=== PATIENT | female | born 1980 | race Caucasian/White ===

== ENCOUNTER 2018-03-05 22:16 | Inpatient (IN) | payer OTHER ==
[2018-03-05] MEDS ORDERED: DOCUSATE SODIUM 100 MG CAP PO (23:30)
[2018-03-05] MEDS ORDERED: ALBUTEROL HFA 8 GM INHALER INH (23:36)
[2018-03-05] MEDS: HYDROmorphONE 0.5 MG/0.5 ML SYG IV (23:57)
[2018-03-05] MEDS: SOD CHLORIDE 0.9% 1,000 ML IV (23:57)
[2018-03-06] MEDS: HYDROmorphONE 0.5 MG/0.5 ML SYG IV ×6 (03:08→20:20)
[2018-03-06] MEDS: PANTOPRAZOLE 40 MG INJ IV (05:42)
[2018-03-06] MEDS ORDERED: ONDANSETRON 4 MG INJ (07:00)
[2018-03-06] MEDS ORDERED: SUCCINYLCHOLINE CHLORIDE 100 MG/5 ML SYG IV (07:00)
[2018-03-06] MEDS: MAGNESIUM OXIDE 400 MG TAB PO ×2 (08:49→21:33)
[2018-03-06] MEDS: POTASSIUM CHLORIDE (SR) 20 MEQ TAB PO ×5 (08:49→21:32)
[2018-03-06] MEDS: clonAZEPAM 0.5 MG TAB PO ×2 (08:49→21:32)
[2018-03-06] MEDS: METHADONE 10 MG TAB PO (08:50)
[2018-03-06] MEDS: SPIRONOLACTONE 25 MG TAB PO ×2 (08:50→21:32)
[2018-03-06 08:54] LABS: ADD MAN DIFF? NO
[2018-03-06 09:01] LABS: BASOPHILS % 1.1 % (0.0-2.0); EOSINOPHILS # 0.1 10^3/ul (0.0-0.5); EOSINOPHILS % 3.2 % (0.0-7.0); HEMATOCRIT 37.6 % (37.0-47.0); HEMOGLOBIN 11.9 g/dl (12.0-16.0); LYMPHOCYTES # 0.9 10^3/ul (0.8-2.9); LYMPHOCYTES % 31.7 % (15.0-51.0); MEAN CORPUSCULAR HGB CONC 31.6 g/dl (32.0-37.0); MEAN CORPUSCULAR VOLUME 91.5 fl (82.0-101.0); MEAN PLATELET VOLUME 9.8 fl (7.4-10.4); MONOCYTE # 0.4 10^3/ul (0.3-0.9); MONOCYTES % 14.4 % (0.0-11.0); NEUTROPHIL # 1.4 10^3/ul (1.6-7.5); NEUTROPHILS % 49.2 % (39.0-77.0); PLATELET COUNT 268 10^3/UL (140-415); RED BLOOD COUNT 4.11 10^6/ul (4.20-5.40); RED CELL DISTRIBUTION WIDTH 13.2 % (11.5-14.5)
[2018-03-06 09:01] LABS: WHITE BLOOD COUNT 2.8 10^3/ul (4.8-10.8)
[2018-03-06 09:18] LABS: INR 1.08; PROTIME 14.1 Sec (11.9-14.9); PT RATIO 1.1
[2018-03-06 09:28] LABS: ALANINE AMINOTRANSFERASE 18 IU/L (13-69); ALBUMIN/GLOBULIN RATIO 1.11; ALKALINE PHOSPHATASE 78 IU/L (42-121); ANION GAP 15 (8-16); ASPARTATE AMINO TRANSFERASE 18 IU/L (15-46); BILIRUBIN,INDIRECT 0.3 mg/dl (0-1.1); BILIRUBIN,TOTAL 0.3 mg/dl (0.2-1.3); BLOOD UREA NITROGEN 17 mg/dl (7-20); CARBON DIOXIDE 30 mmol/L (21-31); CHLORIDE 103 mmol/L (97-110); CREATININE 1.09 mg/dl (0.44-1.00); GLUCOSE 76 mg/dl (70-220); POTASSIUM 3.8 mmol/L (3.5-5.1); SODIUM 144 mmol/L (135-144); TOTAL PROTEIN 7.6 g/dl (6.1-8.1)
[2018-03-06] MEDS: HYDROCODONE/APAP (5/325) TAB PO ×2 (11:29→21:40)
[2018-03-06] MEDS: NICOTINE (21 MG/24 HR) PATCH TRANSDERM (11:30)
[2018-03-06] MEDS: SOD CHLORIDE 0.9% 1,000 ML IV ×2 (11:30→21:31)
[2018-03-06] MEDS ORDERED: IOHEXOL 300MG/ML 30 ML BTL (16:59)
[2018-03-06] MEDS ORDERED: MIDAZOLAM 1 MG/ML 2 ML INJ (17:26)
[2018-03-06] MEDS ORDERED: FENTAnyl 50 MCG/ML VIAL ×3 (17:30→19:30)
[2018-03-06] MEDS ORDERED: PROPOFOL 40 ML (17:31)
[2018-03-06] MEDS ORDERED: ROCURONIUM 50 MG INJ (17:48)
[2018-03-06] MEDS ORDERED: EPHEDrine SULFATE 50 MG/5 ML SYG (18:10)
[2018-03-06] MEDS ORDERED: SUGAMMADEX SODIUM 200 MG/2 ML VIAL IV (18:11)
[2018-03-06] MEDS ORDERED: DEXAMETHASONE 4 MG/ML 1 ML INJ (18:12)
[2018-03-06] MEDS ORDERED: HYDROmorphONE (0.2 MG/ML) 10ML SYG IV ×3 (18:54→19:30)
[2018-03-06] MEDS ORDERED: MEPERIDINE 25 MG INJ (19:10)
[2018-03-06] MEDS ORDERED: FENTAnyl 50 MCG/ML VIAL IV ×2 (19:30)
[2018-03-06] MEDS: MEPERIDINE 25 MG INJ IV (19:33)
[2018-03-06] MEDS: HYDROmorphONE (0.2 MG/ML) 10ML SYG IV (19:34)
[2018-03-06] MEDS: FENTAnyl 50 MCG/ML VIAL IV (19:35)
[2018-03-06] MEDS: ALBUTEROL/IPRATROPIUM (NEB) 3 ML AMP HHN (20:00)
[2018-03-06] MEDS: ONDANSETRON 4 MG INJ IV (20:18)
[2018-03-06] MEDS: LEVOFLOXACIN 500MG/D5W (PMX) 100 ML IVPB (21:31)
[2018-03-06] MEDS: GABAPENTIN 300 MG CAP PO (21:32)
[2018-03-07] MEDS: ALBUTEROL/IPRATROPIUM (NEB) 3 ML AMP HHN ×4 (01:11→19:42)
[2018-03-07] MEDS: HYDROmorphONE 0.5 MG/0.5 ML SYG IV ×7 (01:38→20:58)
[2018-03-07] MEDS: ONDANSETRON 4 MG INJ IV ×2 (04:54→12:14)
[2018-03-07] MEDS: PANTOPRAZOLE 40 MG INJ IV ×2 (04:54→20:58)
[2018-03-07 05:39] LABS: ADD MAN DIFF? NO
[2018-03-07 05:43] LABS: WHITE BLOOD COUNT 3.1 10^3/ul (4.8-10.8)
[2018-03-07 05:43] LABS: BASOPHILS % 0.3 % (0.0-2.0); HEMOGLOBIN 11.6 g/dl (12.0-16.0); LYMPHOCYTES # 0.7 10^3/ul (0.8-2.9); LYMPHOCYTES % 23.9 % (15.0-51.0); MEAN CORPUSCULAR HEMOGLOBIN 28.4 pg (29.0-33.0); MEAN CORPUSCULAR HGB CONC 31.4 g/dl (32.0-37.0); MEAN CORPUSCULAR VOLUME 90.5 fl (82.0-101.0); MEAN PLATELET VOLUME 9.7 fl (7.4-10.4); MONOCYTE # 0.3 10^3/ul (0.3-0.9); MONOCYTES % 8.7 % (0.0-11.0); NEUTROPHIL # 2.1 10^3/ul (1.6-7.5); NEUTROPHILS % 66.8 % (39.0-77.0); PLATELET COUNT 258 10^3/UL (140-415); RED BLOOD COUNT 4.09 10^6/ul (4.20-5.40); RED CELL DISTRIBUTION WIDTH 12.8 % (11.5-14.5)
[2018-03-07 06:00] LABS: PHOSPHORUS 3.8 mg/dl (2.5-4.9)
[2018-03-07 07:00] LABS: ANION GAP 18 (8-16); BLOOD UREA NITROGEN 17 mg/dl (7-20); CALCIUM 8.9 mg/dl (8.4-10.2); CARBON DIOXIDE 23 mmol/L (21-31); CHLORIDE 106 mmol/L (97-110); GLUCOSE 132 mg/dl (70-220); POTASSIUM 4.7 mmol/L (3.5-5.1); SODIUM 142 mmol/L (135-144)
[2018-03-07] MEDS: MAGNESIUM OXIDE 400 MG TAB PO ×2 (08:07→20:58)
[2018-03-07] MEDS: SPIRONOLACTONE 25 MG TAB PO ×2 (08:07→21:14)
[2018-03-07] MEDS: clonAZEPAM 0.5 MG TAB PO ×2 (08:07→20:58)
[2018-03-07] MEDS: NICOTINE (21 MG/24 HR) PATCH TRANSDERM (08:08)
[2018-03-07] MEDS: POTASSIUM CHLORIDE (SR) 20 MEQ TAB PO ×5 (08:10→21:11)
[2018-03-07] MEDS: METHADONE 10 MG TAB PO (09:07)
[2018-03-07 10:22] LABS: ADD UMIC NO; UR ASCORBIC ACID NEGATIVE (NEGATIVE); UR BILIRUBIN (Dip) NEGATIVE (NEGATIVE); UR BLOOD (Dip) NEGATIVE (NEGATIVE); UR CLARITY CLEAR (CLEAR); UR COLOR COLORLESS (YELLOW); UR GLUCOSE (Dip) NEGATIVE (NEGATIVE); UR KETONES (Dip) NEGATIVE (NEGATIVE); UR LEUKOCYTE ESTERASE (Dip) NEGATIVE Leu/ul (NEGATIVE); UR NITRITE (Dip) NEGATIVE (NEGATIVE); UR SPECIFIC GRAVITY (Dip) 1.005 (1.003-1.030); UR TOTAL PROTEIN (Dip) NEGATIVE (NEGATIVE); UR UROBILINOGEN (Dip) NEGATIVE (NEGATIVE)
[2018-03-07] MEDS: PHENYTOIN 100 MG CAP PO ×3 (10:30→20:59)
[2018-03-07] MEDS: SOD CHLORIDE 0.9% 1,000 ML IV (11:36)
[2018-03-07 12:39] LABS: LIPASE 50 U/L (23-300)
[2018-03-07 12:39] LABS: AMYLASE 57 U/L (11-123)
[2018-03-07] MEDS: HYDROCODONE/APAP (5/325) TAB PO (13:27)
[2018-03-07] MEDS: BARIUM SULF 2% 450 ML BTL (BERRY SMOOTHIE) PO (13:30)
[2018-03-07] MEDS: IOHEXOL 300MG/ML 150 ML BTL (15:04)
[2018-03-07] MEDS: SOD CHLORIDE 0.9% 100 ML (15:04)
[2018-03-07] MEDS: HYDROmorphONE 2 MG/ML SYG IV (15:30)
[2018-03-07] MEDS: LEVOFLOXACIN 500MG/D5W (PMX) 100 ML IVPB (16:56)
[2018-03-07] MEDS: GABAPENTIN 300 MG CAP PO (20:59)
[2018-03-08] MEDS: ONDANSETRON 4 MG INJ IV ×3 (00:09→14:36)
[2018-03-08] MEDS: HYDROmorphONE 0.5 MG/0.5 ML SYG IV ×5 (00:11→14:34)
[2018-03-08] MEDS: ALBUTEROL/IPRATROPIUM (NEB) 3 ML AMP HHN ×3 (01:43→14:14)
[2018-03-08] MEDS: SOD CHLORIDE 0.9% 1,000 ML IV ×2 (04:50→05:36)
[2018-03-08] MEDS: NICOTINE (21 MG/24 HR) PATCH TRANSDERM (08:35)
[2018-03-08] MEDS: PANTOPRAZOLE 40 MG INJ IV (08:35)
[2018-03-08] MEDS: clonAZEPAM 0.5 MG TAB PO (09:29)
[2018-03-08] MEDS: MAGNESIUM OXIDE 400 MG TAB PO (09:29)
[2018-03-08] MEDS: SPIRONOLACTONE 25 MG TAB PO (09:29)
[2018-03-08] MEDS: FLUOXETINE 10 MG CAP PO (09:29)
[2018-03-08] MEDS: METHADONE 10 MG TAB PO (09:29)
[2018-03-08] MEDS: PHENYTOIN 100 MG CAP PO ×2 (09:29→12:42)
[2018-03-08] MEDS: POTASSIUM CHLORIDE (SR) 20 MEQ TAB PO ×3 (09:32→14:36)
[2018-03-08] MEDS: BISACODYL 10 MG SUPP PR (09:39)
[2018-03-08] MEDS: DRONABINOL 2.5 MG CAP PO (12:41)
[2018-03-08 15:47] LABS: ABNORMAL IP MESSAGE 1; HEMOGLOBIN 10.8 g/dl (12.0-16.0); MEAN CORPUSCULAR HEMOGLOBIN 28.3 pg (29.0-33.0); MEAN CORPUSCULAR HGB CONC 30.9 g/dl (32.0-37.0); MEAN CORPUSCULAR VOLUME 91.9 fl (82.0-101.0); MEAN PLATELET VOLUME 9.5 fl (7.4-10.4); PLATELET COUNT 256 10^3/UL (140-415); RED BLOOD COUNT 3.81 10^6/ul (4.20-5.40); RED CELL DISTRIBUTION WIDTH 13.1 % (11.5-14.5)
[2018-03-08 15:53] LABS: ADD MAN DIFF? YES; POSITIVE DIFF @See below
[2018-03-08 16:12] LABS: ALANINE AMINOTRANSFERASE 22 IU/L (13-69); ALBUMIN 3.5 g/dl (3.3-4.9); ALBUMIN/GLOBULIN RATIO 0.97; ALKALINE PHOSPHATASE 65 IU/L (42-121); ANION GAP 16 (8-16); ASPARTATE AMINO TRANSFERASE 20 IU/L (15-46); BLOOD UREA NITROGEN 8 mg/dl (7-20); CALCIUM 8.8 mg/dl (8.4-10.2); CARBON DIOXIDE 29 mmol/L (21-31); CHLORIDE 106 mmol/L (97-110); CREATININE 1.22 mg/dl (0.44-1.00); GLUCOSE 100 mg/dl (70-220); SODIUM 147 mmol/L (135-144); TOTAL PROTEIN 7.1 g/dl (6.1-8.1)
[2018-03-08 16:13] LABS: PHOSPHORUS 3.4 mg/dl (2.5-4.9)
[2018-03-08 16:13] LABS: MAGNESIUM 1.6 mg/dl (1.7-2.5)
[2018-03-08 16:17] LABS: ANISOCYTOSIS 1+ (0-0); BAND NEUTROPHILS % (M) 1 % (0-4); EOSINOPHILS % (M) 1 % (0-7); LYMPHOCYTES #M 1.5 10^3/ul (0.8-2.9); LYMPHOCYTES % (M) 50 % (15-51); MICROCYTOSIS 1+ (0-0); MONOCYTE #M 0.2 10^3/ul (0.3-0.9); MONOCYTES % (M) 7 % (0-11); PLATELET ESTIMATE NORMAL; REACTIVE LYMPHOCYTES% (M) 3 % (0-0); SEG NEUT #M 1.1 10^3/ul (1.6-7.5); SEGMENTED NEUTROPHILS (M) % 38 % (39-77); SMUDGE%M 10 % (0-0)
[2018-03-08] MEDS ORDERED: SOD PHOS MONO/DIBAS 250 MG TAB PO (18:30)
== END 2018-03-08 17:13 | disposition left against medical advice (07) | DRG 382 ==
LOC: PP2 22:16
PROC: 0DJ08ZZ Inspection of Upper Intestinal Tract, Via Natural or Artificial Opening Endoscopic (ICD-10-PCS; principal; 2018-03-06 17:30)
PROC: 0F798ZZ Dilation of Common Bile Duct, Via Natural or Artificial Opening Endoscopic (ICD-10-PCS; 2018-03-06 17:30)
PROC: 0F778ZZ Dilation of Common Hepatic Duct, Via Natural or Artificial Opening Endoscopic (ICD-10-PCS; 2018-03-06 17:30)
PROC: 0FPB8DZ Removal of Intraluminal Device from Hepatobiliary Duct, Via Natural or Artificial Opening Endoscopic (ICD-10-PCS; 2018-03-06 17:30)
DX: K22.10 Ulcer of esophagus without bleeding (principal); K25.9 Gastric ulcer, unspecified as acute or chronic, without hemorrhage or perforation; E26.81 Bartter's syndrome; M06.9 Rheumatoid arthritis, unspecified; F17.210 Nicotine dependence, cigarettes, uncomplicated
CPT/HCPCS: 74177; 74330; 80048; 80053; 81003; 82150; 83690; 83735; 84100; 84703; 85025; 85610; 88305; 88313; 94640; 94664

== ENCOUNTER 2018-10-08 04:02 | Emergency (ER) | payer OTHER ==
[2018-10-08] MEDS: HYDROCODONE/APAP (5/325) TAB PO (04:37)
== END 2018-10-08 05:35 | disposition home or self-care (01) ==
LOC: FTE 04:02
DX: S39.92XA Unspecified injury of lower back, initial encounter (principal); J45.909 Unspecified asthma, uncomplicated; J44.9 Chronic obstructive pulmonary disease, unspecified; F17.210 Nicotine dependence, cigarettes, uncomplicated; W06.XXXA Fall from bed, initial encounter; Y92.9 Unspecified place or not applicable
CPT/HCPCS: 72131; 81025; 99284-25

== ENCOUNTER 2019-01-24 10:44 | Inpatient (IN) | payer OTHER ==
[2019-01-24] MEDS: morphine 4 MG/ML VIAL IV (13:23)
[2019-01-24] MEDS: ACETAMINOPHEN 325 MG TAB PO (13:23)
[2019-01-24] MEDS: ONDANSETRON 4 MG INJ IV (13:23)
[2019-01-24 13:24] LABS: ADD MAN DIFF? NO
[2019-01-24 13:29] LABS: BASOPHILS % 0.5 % (0.0-2.0); EOSINOPHILS % 0.4 % (0.0-7.0); HEMATOCRIT 39.5 % (37.0-47.0); HEMOGLOBIN 12.6 g/dl (12.0-16.0); LYMPHOCYTES # 1.4 10^3/ul (0.8-2.9); LYMPHOCYTES % 17.2 % (15.0-51.0); MEAN CORPUSCULAR HEMOGLOBIN 29.1 pg (29.0-33.0); MEAN CORPUSCULAR HGB CONC 31.9 g/dl (32.0-37.0); MEAN CORPUSCULAR VOLUME 91.2 fl (82.0-101.0); MEAN PLATELET VOLUME 9.1 fl (7.4-10.4); MONOCYTE # 0.6 10^3/ul (0.3-0.9); MONOCYTES % 7.7 % (0.0-11.0); NEUTROPHIL # 5.9 10^3/ul (1.6-7.5); NEUTROPHILS % 73.6 % (39.0-77.0); PLATELET COUNT 433 10^3/UL (140-415); RED BLOOD COUNT 4.33 10^6/ul (4.20-5.40); RED CELL DISTRIBUTION WIDTH 12.2 % (11.5-14.5)
[2019-01-24] MEDS ORDERED: ACETAMINOPHEN 325 MG TAB PO (13:30)
[2019-01-24] MEDS ORDERED: ONDANSETRON 4 MG INJ IV (13:30)
[2019-01-24 13:52] LABS: ALBUMIN 4.3 g/dl (3.3-4.9); ALBUMIN/GLOBULIN RATIO 0.93; ALKALINE PHOSPHATASE 84 IU/L (42-121); ANION GAP 8 (5-13); ASPARTATE AMINO TRANSFERASE 20 IU/L (15-46); BILIRUBIN,INDIRECT 0.1 mg/dl (0-1.1); BILIRUBIN,TOTAL 0.1 mg/dl (0.2-1.3); BLOOD UREA NITROGEN 14 mg/dl (7-20); CALCIUM 10.2 mg/dl (8.4-10.2); CARBON DIOXIDE 32 mmol/L (21-31); CHLORIDE 101 mmol/L (97-110); CREATININE 1.23 mg/dl (0.44-1.00); Estimated GFR 49 mL/min (>60); GLUCOSE 94 mg/dl (70-220); POTASSIUM 5.2 mmol/L (3.5-5.1); SODIUM 141 mmol/L (135-144); TOTAL PROTEIN 8.9 g/dl (6.1-8.1)
[2019-01-24 13:53] LABS: INR 0.99; PARTIAL THROMBOPLASTIN TIME 30.9 Sec (23.0-35.0); PROTIME 13.2 Sec (11.9-14.9)
[2019-01-24 14:00] LABS: ALANINE AMINOTRANSFERASE < 6 IU/L (13-69)
[2019-01-24] MEDS: SOD CHLORIDE 0.9% 1,000 ML IV ×2 (14:27→17:54)
[2019-01-24] MEDS ORDERED: VANCOMYCIN IV PER PHARMACY XX (16:30)
[2019-01-24] MEDS: morphine 2 MG INJ IV ×2 (16:44→21:05)
[2019-01-24 17:37] LABS: ADD UMIC YES; UR ASCORBIC ACID NEGATIVE (NEGATIVE); UR BILIRUBIN (Dip) NEGATIVE (NEGATIVE); UR BLOOD (Dip) 1+ mg/dL (NEGATIVE); UR CLARITY CLEAR (CLEAR); UR COLOR YELLOW (YELLOW); UR GLUCOSE (Dip) NEGATIVE (NEGATIVE); UR KETONES (Dip) NEGATIVE (NEGATIVE); UR LEUKOCYTE ESTERASE (Dip) NEGATIVE Leu/ul (NEGATIVE); UR NITRITE (Dip) NEGATIVE (NEGATIVE); UR RBC 1 /HPF (0-5); UR SPECIFIC GRAVITY (Dip) 1.013 (1.003-1.030); UR SQUAMOUS EPITHELIAL CELL FEW /HPF (FEW); UR TOTAL PROTEIN (Dip) NEGATIVE (NEGATIVE); UR UROBILINOGEN (Dip) NEGATIVE (NEGATIVE); UR WBC 2 /HPF (0-5)
[2019-01-24] MEDS: LORAZEPAM 1 MG TAB PO (17:44)
[2019-01-24] MEDS: ALBUTEROL HFA 8 GM INHALER INH ×2 (17:45→21:09)
[2019-01-24] MEDS: CEFEPIME 1GM/50 ML (PMX) 50 ML IVPB (17:46)
[2019-01-24] MEDS: VANCOMYCIN 1 GM 250 ML IVPB (17:46)
[2019-01-24 17:50] LABS: AMPHETAMINE/METHAMPHETAMINE Negative (NEGATIVE); BARBITURATES Negative (NEGATIVE); BENZODIAZEPINES Negative (NEGATIVE); CANNABINOIDS Positive (NEGATIVE); COCAINE Negative (NEGATIVE); OPIATES Positive (NEGATIVE)
[2019-01-24] MEDS: HYDROCODONE/APAP (5/325) TAB PO (17:58)
[2019-01-24] MEDS ORDERED: POTASSIUM CHLORIDE (SR) 20 MEQ TAB PO (21:00)
[2019-01-24] MEDS: MAGNESIUM OXIDE 400 MG TAB PO (21:05)
[2019-01-24] MEDS: GABAPENTIN 300 MG CAP PO (21:05)
[2019-01-25] MEDS: HYDROCODONE/APAP (5/325) TAB PO ×2 (00:10→07:39)
[2019-01-25] MEDS: ALBUTEROL HFA 8 GM INHALER INH ×6 (01:00→20:56)
[2019-01-25] MEDS: CEFEPIME 1GM/50 ML (PMX) 50 ML IVPB ×3 (01:03→20:53)
[2019-01-25] MEDS: morphine 2 MG INJ IV ×3 (01:03→08:58)
[2019-01-25] MEDS: LORAZEPAM 1 MG TAB PO ×2 (01:58→21:48)
[2019-01-25] MEDS: PANTOPRAZOLE 40 MG INJ IV (05:04)
[2019-01-25] MEDS: VANCOMYCIN 1 GM 250 ML IVPB ×2 (05:04→18:02)
[2019-01-25] MEDS: SOD CHLORIDE 0.9% 1,000 ML IV ×2 (06:18→20:36)
[2019-01-25 06:39] LABS: ADD MAN DIFF? NO
[2019-01-25 06:46] LABS: WHITE BLOOD COUNT 6.9 10^3/ul (4.8-10.8)
[2019-01-25 06:46] LABS: BASOPHILS % 0.4 % (0.0-2.0); EOSINOPHILS # 0.1 10^3/ul (0.0-0.5); EOSINOPHILS % 1.8 % (0.0-7.0); HEMATOCRIT 36.8 % (37.0-47.0); HEMOGLOBIN 11.8 g/dl (12.0-16.0); LYMPHOCYTES # 1.4 10^3/ul (0.8-2.9); MEAN CORPUSCULAR HEMOGLOBIN 28.9 pg (29.0-33.0); MEAN CORPUSCULAR HGB CONC 32.1 g/dl (32.0-37.0); MONOCYTE # 0.6 10^3/ul (0.3-0.9); MONOCYTES % 8.9 % (0.0-11.0); NEUTROPHIL # 4.7 10^3/ul (1.6-7.5); NEUTROPHILS % 68.5 % (39.0-77.0); PLATELET COUNT 408 10^3/UL (140-415); RED BLOOD COUNT 4.09 10^6/ul (4.20-5.40); RED CELL DISTRIBUTION WIDTH 12.2 % (11.5-14.5)
[2019-01-25 07:04] LABS: ANION GAP 9 (5-13); BLOOD UREA NITROGEN 14 mg/dl (7-20); CALCIUM 8.9 mg/dl (8.4-10.2); CARBON DIOXIDE 29 mmol/L (21-31); CHLORIDE 102 mmol/L (97-110); CREATININE 1.07 mg/dl (0.44-1.00); Estimated GFR 58 mL/min (>60); GLUCOSE 87 mg/dl (70-220); MAGNESIUM 1.4 mg/dl (1.7-2.5); PHOSPHORUS 3.7 mg/dl (2.5-4.9); POTASSIUM 4.3 mmol/L (3.5-5.1); SODIUM 140 mmol/L (135-144)
[2019-01-25] MEDS: LORAZEPAM 2 MG INJ IV (07:57)
[2019-01-25] MEDS: LIDOCAINE 1%/EPI 30 ML INJ INJ (08:19)
[2019-01-25] MEDS: DULOXETINE 30 MG CAP DR PO (09:27)
[2019-01-25] MEDS: MAGNESIUM OXIDE 400 MG TAB PO ×2 (09:27→20:52)
[2019-01-25] MEDS: OXYCODONE/ACETAMINOPHEN (5/325) TAB PO ×3 (10:00→19:26)
[2019-01-25] MEDS: morphine 4 MG/ML VIAL IV ×3 (12:44→20:53)
[2019-01-25] MEDS: ENOXAPARIN 40 MG/0.4 ML SYG SC (12:51)
[2019-01-25] MEDS: NICOTINE (21 MG/24 HR) PATCH TRANSDERM ×2 (12:56→16:53)
[2019-01-25] MEDS: ONDANSETRON 4 MG INJ IV (20:16)
[2019-01-25] MEDS: GABAPENTIN 300 MG CAP PO (20:53)
[2019-01-26] MEDS: ALBUTEROL HFA 8 GM INHALER INH ×6 (01:00→20:10)
[2019-01-26] MEDS: morphine 4 MG/ML VIAL IV ×5 (02:44→20:04)
[2019-01-26] MEDS: OXYCODONE/ACETAMINOPHEN (5/325) TAB PO ×5 (05:38→23:00)
[2019-01-26] MEDS: PANTOPRAZOLE (EC) 40 MG TAB PO (05:38)
[2019-01-26] MEDS ORDERED: PANTOPRAZOLE 40 MG INJ IV (06:00)
[2019-01-26 06:10] LABS: ADD MAN DIFF? NO
[2019-01-26 06:22] LABS: WHITE BLOOD COUNT 5.3 10^3/ul (4.8-10.8)
[2019-01-26 06:22] LABS: BASOPHILS % 0.6 % (0.0-2.0); EOSINOPHILS # 0.2 10^3/ul (0.0-0.5); EOSINOPHILS % 2.8 % (0.0-7.0); HEMOGLOBIN 11.5 g/dl (12.0-16.0); LYMPHOCYTES # 1.5 10^3/ul (0.8-2.9); MEAN CORPUSCULAR HEMOGLOBIN 28.6 pg (29.0-33.0); MEAN CORPUSCULAR HGB CONC 31.9 g/dl (32.0-37.0); MEAN CORPUSCULAR VOLUME 89.6 fl (82.0-101.0); MONOCYTE # 0.6 10^3/ul (0.3-0.9); MONOCYTES % 10.5 % (0.0-11.0); NEUTROPHIL # 3.1 10^3/ul (1.6-7.5); NEUTROPHILS % 57.7 % (39.0-77.0); PLATELET COUNT 413 10^3/UL (140-415); RED BLOOD COUNT 4.02 10^6/ul (4.20-5.40); RED CELL DISTRIBUTION WIDTH 12.1 % (11.5-14.5)
[2019-01-26 07:17] LABS: ANION GAP 11 (5-13); BLOOD UREA NITROGEN 12 mg/dl (7-20); CALCIUM 9.1 mg/dl (8.4-10.2); CARBON DIOXIDE 30 mmol/L (21-31); CHLORIDE 99 mmol/L (97-110); CREATININE 1.09 mg/dl (0.44-1.00); Estimated GFR 57 mL/min (>60); GLUCOSE 85 mg/dl (70-220); POTASSIUM 3.4 mmol/L (3.5-5.1); SODIUM 140 mmol/L (135-144)
[2019-01-26] MEDS: VANCOMYCIN 1 GM 250 ML IVPB ×2 (07:24→17:08)
[2019-01-26] MEDS: LORAZEPAM 1 MG TAB PO ×2 (07:36→15:43)
[2019-01-26] MEDS: MAGNESIUM OXIDE 400 MG TAB PO ×2 (08:57→20:05)
[2019-01-26] MEDS: ENOXAPARIN 40 MG/0.4 ML SYG SC (08:57)
[2019-01-26] MEDS: DULOXETINE 30 MG CAP DR PO (08:58)
[2019-01-26] MEDS: NICOTINE (21 MG/24 HR) PATCH TRANSDERM (08:58)
[2019-01-26] MEDS: CEFEPIME 1GM/50 ML (PMX) 50 ML IVPB ×2 (08:58→20:05)
[2019-01-26] MEDS: SOD CHLORIDE 0.9% 1,000 ML IV ×2 (11:36→15:41)
[2019-01-26] MEDS: HYDROCODONE/APAP (5/325) TAB PO (17:13)
[2019-01-26] MEDS: BENZOCAINE 20% 0.33 OZ. GEL MT ×2 (17:46→20:08)
[2019-01-26] MEDS: GABAPENTIN 300 MG CAP PO (20:05)
[2019-01-26] MEDS: POTASSIUM CHLORIDE (SR) 20 MEQ TAB PO (21:22)
[2019-01-27] MEDS: LORAZEPAM 1 MG TAB PO ×3 (00:09→17:45)
[2019-01-27] MEDS: morphine 4 MG/ML VIAL IV ×6 (00:10→22:51)
[2019-01-27] MEDS: ALBUTEROL HFA 8 GM INHALER INH ×6 (01:00→21:00)
[2019-01-27] MEDS: OXYCODONE/ACETAMINOPHEN (5/325) TAB PO ×5 (03:06→20:27)
[2019-01-27] MEDS: PANTOPRAZOLE (EC) 40 MG TAB PO (05:31)
[2019-01-27] MEDS: VANCOMYCIN 1 GM 250 ML IVPB (05:32)
[2019-01-27 07:24] LABS: ADD MAN DIFF? NO
[2019-01-27 07:28] LABS: WHITE BLOOD COUNT 6.6 10^3/ul (4.8-10.8)
[2019-01-27 07:28] LABS: BASOPHIL # 0.1 10^3/ul (0.0-0.1); BASOPHILS % 0.8 % (0.0-2.0); EOSINOPHILS # 0.3 10^3/ul (0.0-0.5); EOSINOPHILS % 4.1 % (0.0-7.0); HEMATOCRIT 31.5 % (37.0-47.0); HEMOGLOBIN 10.1 g/dl (12.0-16.0); LYMPHOCYTES % 30.2 % (15.0-51.0); MEAN CORPUSCULAR HEMOGLOBIN 28.9 pg (29.0-33.0); MEAN CORPUSCULAR HGB CONC 32.1 g/dl (32.0-37.0); MEAN PLATELET VOLUME 9.1 fl (7.4-10.4); MONOCYTE # 0.8 10^3/ul (0.3-0.9); MONOCYTES % 12.1 % (0.0-11.0); NEUTROPHIL # 3.5 10^3/ul (1.6-7.5); NEUTROPHILS % 52.3 % (39.0-77.0); PLATELET COUNT 379 10^3/UL (140-415); RED CELL DISTRIBUTION WIDTH 12.3 % (11.5-14.5)
[2019-01-27] MEDS: HYDROCODONE/APAP (5/325) TAB PO (07:34)
[2019-01-27 07:52] LABS: ANION GAP 7 (5-13); BLOOD UREA NITROGEN 21 mg/dl (7-20); CALCIUM 8.6 mg/dl (8.4-10.2); CARBON DIOXIDE 29 mmol/L (21-31); CHLORIDE 104 mmol/L (97-110); CREATININE 1.33 mg/dl (0.44-1.00); Estimated GFR 45 mL/min (>60); GLUCOSE 79 mg/dl (70-220); POTASSIUM 3.5 mmol/L (3.5-5.1); SODIUM 140 mmol/L (135-144)
[2019-01-27] MEDS: BENZOCAINE 20% 0.33 OZ. GEL MT ×2 (09:13→20:27)
[2019-01-27] MEDS: ENOXAPARIN 40 MG/0.4 ML SYG SC (09:14)
[2019-01-27] MEDS: CEFEPIME 1GM/50 ML (PMX) 50 ML IVPB (09:14)
[2019-01-27] MEDS: MAGNESIUM OXIDE 400 MG TAB PO ×2 (09:15→20:26)
[2019-01-27] MEDS: POTASSIUM CHLORIDE (SR) 20 MEQ TAB PO ×3 (09:15→20:27)
[2019-01-27] MEDS: NICOTINE (21 MG/24 HR) PATCH TRANSDERM (09:15)
[2019-01-27] MEDS: DULOXETINE 30 MG CAP DR PO (09:15)
[2019-01-27] MEDS: SOD CHLORIDE 0.9% 1,000 ML IV (16:11)
[2019-01-27] MEDS: GABAPENTIN 300 MG CAP PO (20:27)
[2019-01-27] MEDS: AMPICILLIN/SULB 1.5GM/NS (PMX) 50 ML IVPB (21:29)
[2019-01-27] MEDS: CLINDAMYCIN 600 MG/D5W (PMX) 50 ML IVPB (22:11)
[2019-01-28] MEDS: NICOTINE (21 MG/24 HR) PATCH TRANSDERM (00:57)
[2019-01-28] MEDS: OXYCODONE/ACETAMINOPHEN (5/325) TAB PO ×6 (01:04→21:38)
[2019-01-28] MEDS: ALBUTEROL HFA 8 GM INHALER INH ×6 (01:58→20:20)
[2019-01-28] MEDS: LORAZEPAM 1 MG TAB PO ×3 (02:03→19:03)
[2019-01-28] MEDS: morphine 4 MG/ML VIAL IV ×4 (03:16→20:22)
[2019-01-28] MEDS: CLINDAMYCIN 600 MG/D5W (PMX) 50 ML IVPB ×3 (05:11→21:30)
[2019-01-28] MEDS: AMPICILLIN/SULB 1.5GM/NS (PMX) 50 ML IVPB ×3 (06:24→22:54)
[2019-01-28] MEDS: PANTOPRAZOLE (EC) 40 MG TAB PO (06:24)
[2019-01-28 08:30] LABS: ANION GAP 8 (5-13); BLOOD UREA NITROGEN 21 mg/dl (7-20); CARBON DIOXIDE 29 mmol/L (21-31); CHLORIDE 105 mmol/L (97-110); Estimated GFR 46 mL/min (>60); GLUCOSE 103 mg/dl (70-220); POTASSIUM 4.1 mmol/L (3.5-5.1); SODIUM 142 mmol/L (135-144)
[2019-01-28] MEDS: POTASSIUM CHLORIDE (SR) 20 MEQ TAB PO ×3 (08:54→20:22)
[2019-01-28] MEDS: MAGNESIUM OXIDE 400 MG TAB PO ×2 (08:54→20:20)
[2019-01-28] MEDS: DULOXETINE 30 MG CAP DR PO (08:54)
[2019-01-28] MEDS: ENOXAPARIN 40 MG/0.4 ML SYG SC (08:58)
[2019-01-28] MEDS: BENZOCAINE 20% 0.33 OZ. GEL MT ×2 (09:00→20:20)
[2019-01-28] MEDS: GABAPENTIN 300 MG CAP PO (20:21)
[2019-01-29] MEDS: HYDROCODONE/APAP (5/325) TAB PO ×2 (00:08→09:17)
[2019-01-29] MEDS: ALBUTEROL HFA 8 GM INHALER INH ×6 (01:00→23:37)
[2019-01-29] MEDS: morphine 4 MG/ML VIAL IV ×4 (01:57→14:20)
[2019-01-29] MEDS: OXYCODONE/ACETAMINOPHEN (5/325) TAB PO ×4 (04:12→15:13)
[2019-01-29] MEDS: BENZOCAINE 20% 0.33 OZ. GEL MT ×2 (04:13→21:00)
[2019-01-29] MEDS: AMPICILLIN/SULB 1.5GM/NS (PMX) 50 ML IVPB ×4 (05:31→22:37)
[2019-01-29] MEDS: PANTOPRAZOLE (EC) 40 MG TAB PO (06:13)
[2019-01-29] MEDS: CLINDAMYCIN 600 MG/D5W (PMX) 50 ML IVPB ×3 (06:14→23:13)
[2019-01-29] MEDS: LORAZEPAM 1 MG TAB PO ×2 (08:31→16:31)
[2019-01-29] MEDS: DULOXETINE 30 MG CAP DR PO (08:32)
[2019-01-29] MEDS: MAGNESIUM OXIDE 400 MG TAB PO ×2 (08:32→23:33)
[2019-01-29] MEDS: ENOXAPARIN 40 MG/0.4 ML SYG SC (08:33)
[2019-01-29] MEDS: POTASSIUM CHLORIDE (SR) 20 MEQ TAB PO ×3 (08:34→23:33)
[2019-01-29] MEDS: NICOTINE (21 MG/24 HR) PATCH TRANSDERM (08:37)
[2019-01-29] MEDS: SOD CHLORIDE 0.9% 1,000 ML IV ×2 (08:41→16:45)
[2019-01-29 09:13] LABS: ADD MAN DIFF? NO
[2019-01-29 09:15] LABS: WHITE BLOOD COUNT 7.4 10^3/ul (4.8-10.8)
[2019-01-29 09:15] LABS: BASOPHIL # 0.1 10^3/ul (0.0-0.1); BASOPHILS % 0.7 % (0.0-2.0); EOSINOPHILS # 0.3 10^3/ul (0.0-0.5); EOSINOPHILS % 3.5 % (0.0-7.0); HEMATOCRIT 27.7 % (37.0-47.0); HEMOGLOBIN 8.7 g/dl (12.0-16.0); LYMPHOCYTES # 2.1 10^3/ul (0.8-2.9); LYMPHOCYTES % 27.6 % (15.0-51.0); MEAN CORPUSCULAR HEMOGLOBIN 28.9 pg (29.0-33.0); MEAN CORPUSCULAR HGB CONC 31.4 g/dl (32.0-37.0); MEAN PLATELET VOLUME 9.2 fl (7.4-10.4); MONOCYTE # 0.8 10^3/ul (0.3-0.9); MONOCYTES % 10.9 % (0.0-11.0); NEUTROPHIL # 4.2 10^3/ul (1.6-7.5); NEUTROPHILS % 56.8 % (39.0-77.0); PLATELET COUNT 361 10^3/UL (140-415); RED BLOOD COUNT 3.01 10^6/ul (4.20-5.40); RED CELL DISTRIBUTION WIDTH 12.4 % (11.5-14.5)
[2019-01-29 09:49] LABS: ANION GAP 5 (5-13); BLOOD UREA NITROGEN 16 mg/dl (7-20); CALCIUM 8.8 mg/dl (8.4-10.2); CARBON DIOXIDE 32 mmol/L (21-31); CHLORIDE 103 mmol/L (97-110); CREATININE 1.23 mg/dl (0.44-1.00); Estimated GFR 49 mL/min (>60); GLUCOSE 75 mg/dl (70-220); POTASSIUM 4.3 mmol/L (3.5-5.1); SODIUM 140 mmol/L (135-144)
[2019-01-29 09:55] LABS: MAGNESIUM 1.7 mg/dl (1.7-2.5)
[2019-01-29 09:55] LABS: PHOSPHORUS 4.1 mg/dl (2.5-4.9)
[2019-01-29] MEDS ORDERED: HYDROmorphONE 1 MG/ML SYG IV (11:00)
[2019-01-29] MEDS ORDERED: LORAZEPAM 2 MG INJ IV (11:00)
[2019-01-29] MEDS: ACETAMINOPHEN 325 MG TAB PO (13:19)
[2019-01-29] MEDS: ACETYLCYSTEINE 600 MG CAP PO ×2 (13:20→23:33)
[2019-01-29] MEDS: LORAZEPAM 2 MG INJ IV (17:53)
[2019-01-29] MEDS: HYDROmorphONE 2 MG/ML SYG IV (17:56)
[2019-01-29] MEDS: LIDOCAINE 1%/EPI (1:100,000) (MDV) 20 ML INJ (18:52)
[2019-01-29] MEDS: HYDROmorphONE 1 MG/ML SYG IV ×2 (19:06→23:33)
[2019-01-29] MEDS: GABAPENTIN 300 MG CAP PO (23:33)
[2019-01-30] MEDS: LORAZEPAM 1 MG TAB PO ×2 (00:49→19:31)
[2019-01-30] MEDS: ALBUTEROL HFA 8 GM INHALER INH ×6 (01:00→20:27)
[2019-01-30] MEDS: OXYCODONE/ACETAMINOPHEN (5/325) TAB PO ×6 (01:42→21:37)
[2019-01-30] MEDS: HYDROmorphONE 1 MG/ML SYG IV ×5 (03:40→20:26)
[2019-01-30] MEDS: SOD CHLORIDE 0.9% 1,000 ML IV ×3 (03:40→22:27)
[2019-01-30] MEDS: AMPICILLIN/SULB 1.5GM/NS (PMX) 50 ML IVPB ×3 (05:15→21:36)
[2019-01-30] MEDS: PANTOPRAZOLE (EC) 40 MG TAB PO (05:18)
[2019-01-30 06:12] LABS: ADD MAN DIFF? NO
[2019-01-30 06:16] LABS: WHITE BLOOD COUNT 6.4 10^3/ul (4.8-10.8)
[2019-01-30 06:16] LABS: BASOPHIL # 0.1 10^3/ul (0.0-0.1); BASOPHILS % 0.8 % (0.0-2.0); EOSINOPHILS # 0.3 10^3/ul (0.0-0.5); EOSINOPHILS % 4.1 % (0.0-7.0); HEMATOCRIT 33.5 % (37.0-47.0); LYMPHOCYTES # 1.9 10^3/ul (0.8-2.9); LYMPHOCYTES % 29.6 % (15.0-51.0); MEAN CORPUSCULAR HEMOGLOBIN 28.7 pg (29.0-33.0); MEAN CORPUSCULAR HGB CONC 29.9 g/dl (32.0-37.0); MEAN CORPUSCULAR VOLUME 96.3 fl (82.0-101.0); MEAN PLATELET VOLUME 9.1 fl (7.4-10.4); MONOCYTE # 0.7 10^3/ul (0.3-0.9); MONOCYTES % 10.6 % (0.0-11.0); NEUTROPHIL # 3.5 10^3/ul (1.6-7.5); NEUTROPHILS % 54.3 % (39.0-77.0); PLATELET COUNT 418 10^3/UL (140-415); RED BLOOD COUNT 3.48 10^6/ul (4.20-5.40); RED CELL DISTRIBUTION WIDTH 12.3 % (11.5-14.5)
[2019-01-30] MEDS: CLINDAMYCIN 600 MG/D5W (PMX) 50 ML IVPB ×3 (06:37→22:23)
[2019-01-30 06:49] LABS: PHOSPHORUS 4.2 mg/dl (2.5-4.9)
[2019-01-30 06:49] LABS: MAGNESIUM 1.6 mg/dl (1.7-2.5)
[2019-01-30 07:06] LABS: ANION GAP 6 (5-13); BLOOD UREA NITROGEN 13 mg/dl (7-20); CALCIUM 9.2 mg/dl (8.4-10.2); CARBON DIOXIDE 33 mmol/L (21-31); CHLORIDE 104 mmol/L (97-110); CREATININE 1.05 mg/dl (0.44-1.00); Estimated GFR 59 mL/min (>60); GLUCOSE 88 mg/dl (70-220); SODIUM 143 mmol/L (135-144)
[2019-01-30] MEDS: BENZOCAINE 20% 0.33 OZ. GEL MT ×3 (08:24→20:36)
[2019-01-30] MEDS: DULOXETINE 30 MG CAP DR PO (08:25)
[2019-01-30] MEDS: ACETYLCYSTEINE 600 MG CAP PO ×2 (08:25→20:26)
[2019-01-30] MEDS: MAGNESIUM OXIDE 400 MG TAB PO ×2 (08:25→20:26)
[2019-01-30] MEDS: NICOTINE (21 MG/24 HR) PATCH TRANSDERM (08:26)
[2019-01-30] MEDS: POTASSIUM CHLORIDE (SR) 20 MEQ TAB PO ×3 (08:26→20:37)
[2019-01-30] MEDS: ENOXAPARIN 40 MG/0.4 ML SYG SC (08:29)
[2019-01-30] MEDS: SOD CHLORIDE 0.9% 100 ML (09:35)
[2019-01-30] MEDS: IODIXANOL LOCM 100 ML BTL (09:35)
[2019-01-30] MEDS: MAGNESIUM SULFATE 2 GM/50 ML 50 ML IVPB (16:13)
[2019-01-30] MEDS: HYDROCODONE/APAP (5/325) TAB PO (19:31)
[2019-01-30] MEDS: GABAPENTIN 300 MG CAP PO (20:26)
[2019-01-31] MEDS: HYDROmorphONE 1 MG/ML SYG IV ×4 (00:28→13:02)
[2019-01-31] MEDS: ALBUTEROL HFA 8 GM INHALER INH ×4 (00:49→12:51)
[2019-01-31] MEDS: OXYCODONE/ACETAMINOPHEN (5/325) TAB PO ×3 (03:39→10:47)
[2019-01-31] MEDS: PANTOPRAZOLE (EC) 40 MG TAB PO (05:05)
[2019-01-31] MEDS: AMPICILLIN/SULB 1.5GM/NS (PMX) 50 ML IVPB ×2 (05:05→12:57)
[2019-01-31] MEDS: CLINDAMYCIN 600 MG/D5W (PMX) 50 ML IVPB ×2 (05:51→14:04)
[2019-01-31 07:47] LABS: ANION GAP 6 (5-13); BLOOD UREA NITROGEN 12 mg/dl (7-20); CALCIUM 8.8 mg/dl (8.4-10.2); CARBON DIOXIDE 36 mmol/L (21-31); CHLORIDE 101 mmol/L (97-110); CREATININE 1.13 mg/dl (0.44-1.00); Estimated GFR 54 mL/min (>60); GLUCOSE 94 mg/dl (70-220); POTASSIUM 4.7 mmol/L (3.5-5.1); SODIUM 143 mmol/L (135-144)
[2019-01-31] MEDS: DULOXETINE 30 MG CAP DR PO (08:54)
[2019-01-31] MEDS: MAGNESIUM OXIDE 400 MG TAB PO (08:54)
[2019-01-31] MEDS: POTASSIUM CHLORIDE (SR) 20 MEQ TAB PO ×2 (08:54→12:50)
[2019-01-31] MEDS: NICOTINE (21 MG/24 HR) PATCH TRANSDERM (08:55)
[2019-01-31] MEDS: ENOXAPARIN 40 MG/0.4 ML SYG SC (08:57)
[2019-01-31] MEDS: BENZOCAINE 20% 0.33 OZ. GEL MT (09:00)
[2019-01-31] MEDS: SOD CHLORIDE 0.9% 1,000 ML IV ×2 (10:00→12:49)
[2019-01-31] MEDS: LORAZEPAM 1 MG TAB PO (10:47)
== END 2019-01-31 16:00 | disposition home or self-care (01) | DRG 158 ==
LOC: 5EC 01-27 23:50 → E/R 10:44 → 5EC 13:13
PROC: 0C9 Mouth and Throat, Drainage (ICD-10-PCS; principal; 2019-01-29)
DX: K04.7 Periapical abscess without sinus (principal); L03.211 Cellulitis of face; R78.81 Bacteremia; N17.9 Acute kidney failure, unspecified; E87.3 Alkalosis; E26.81 Bartter's syndrome; M79.7 Fibromyalgia; G43.909 Migraine, unspecified, not intractable, without status migrainosus; G89.4 Chronic pain syndrome; F12.20 Cannabis dependence, uncomplicated; J45.909 Unspecified asthma, uncomplicated; D64.9 Anemia, unspecified; B96.89 Other specified bacterial agents as the cause of diseases classified elsewhere; J32.9 Chronic sinusitis, unspecified; N18.9 Chronic kidney disease, unspecified; K02.9 Dental caries, unspecified; D47.3 Essential (hemorrhagic) thrombocythemia; E87.5 Hyperkalemia; Z72.0 Tobacco use; B95.7 Other staphylococcus as the cause of diseases classified elsewhere
CPT/HCPCS: 36415; 70486; 71045; 80048; 80053; 80202; 80307; 81001; 83735; 84100; 85025; 85610; 85730; 87040; 87070; 87081; 93005; 99285-25

== ENCOUNTER 2019-02-02 15:57 | Emergency (ER) | payer SELFPAY, OTHER | END 2019-02-02 22:55 | disposition left against medical advice (07) | LOC: FTE 15:57 | DX: Z53.21 Procedure and treatment not carried out due to patient leaving prior to being seen by health care provider (principal) ==

== ENCOUNTER 2019-02-06 16:52 | Emergency (ER) | payer SELFPAY | END 2019-02-06 20:56 | disposition left against medical advice (07) | LOC: FTE 16:52 | DX: Z53.21 Procedure and treatment not carried out due to patient leaving prior to being seen by health care provider (principal) ==

== ENCOUNTER 2019-04-09 15:22 | Emergency (ER) | payer OTHER | END 2019-04-09 18:24 | disposition left against medical advice (07) | LOC: FTE 15:22 | DX: M54.9 Dorsalgia, unspecified (principal); Z87.891 Personal history of nicotine dependence | CPT/HCPCS: 99282; Z7502 ==